=== PATIENT | female | born 1965 | race Hispanic/Latino ===

== ENCOUNTER 2021-05-03 02:22 | Emergency (ER) | payer MEDICAID ==
[~2021-05-03] VITALS: Ht 157.5 cm; Wt 113.4 kg
[2021-05-03 02:49] LABS: HEMATOCRIT 38.7 % (36-48); MEAN CORPUSCULAR HGB CONC 33.6 g/dL (32.0-36.0); MEAN CORPUSCULAR VOLUME 86.4 fL (79-99); PLATELET COUNT (AUTO) 230 K/uL (130-400); RED BLOOD CELL COUNT(AUTO) 4.48 MIL/uL (4.00-5.50); RED CELL DISTRIBUTION WIDTH 13.3 % (11.0-15.5); WHITE BLOOD COUNT (AUTO) 7.7 K/uL (4.8-10.8)
[2021-05-03 02:53] LABS: BASOPHILS % (AUTO) 0.8 % (0.0-5.0); EOSINOPHILS % (AUTO) 2.7 % (0.0-8.0); LYMPHOCYTES % (AUTO) 20.5 % (21.0-51.0); NEUTROPHILS % (AUTO) 66.3 % (40.0-77.0)
[2021-05-03 03:11] LABS: CREATININE 1.6 mg/dL (0.5-1.5); POTASSIUM 3.7 mmol/L (3.5-5.1)
[2021-05-03 03:15] LABS: ALBUMIN 2.8 g/dL (3.5-5.0); BILIRUBIN,TOTAL 0.2 mg/dL (0.2-1.0); TOTAL PROTEIN, SERUM 7.1 g/dL (6.0-8.3)
[2021-05-03] MEDS ORDERED: ACETAMINOPHEN 325 MG TAB PO ONE (04:00)
[2021-05-03] MEDS ORDERED: 0.9% NACL 250ML 250 ML IV ONE (04:00)
[2021-05-03 04:02] LABS: PROTHROMBIN TIME 10.9 SEC (9.6-11.6)
[2021-05-03 04:03] LABS: PARTIAL THROMBOPLASTIN TIME 25.2 SEC (26.3-35.5)
[2021-05-03 04:24] LABS: BILIRUBIN,URINE Negative (NEGATIVE); COLOR,URINE Yellow (YELLOW); GLUCOSE, URINE (UA) >=1000 mg/dL (NEGATIVE); KETONES,URINE Negative (NEGATIVE); LEUKOCYTE ESTERASE ,URINE Small (NEGATIVE); NITRATE,URINE Negative (NEGATIVE); OCCULT BLOOD,URINE Small (NEGATIVE); PROTEIN,URINE 300 mg/dL (NEGATIVE)
[2021-05-03 04:25] LABS: APPEARANCE,URINE CLOUDY (CLEAR)
[2021-05-03] MEDS ORDERED: ACETAMINOPHEN 325 MG TAB ONE (04:28)
[2021-05-03 04:34] LABS: BACTERIA,URINE Rare /HPF (None Seen); MUCUS,URINE Rare LPF (None Seen); SQUAMOUS EPITHELIAL CELL,UR Moderate /HPF (0-2)
[2021-05-03] MEDS ORDERED: 0.9% NACL 500ML IV.SOLN 500 ML IV ONE (06:21)
[2021-05-03 11:42] VITALS: BP 138/52
== END 2021-05-03 12:13 | disposition home or self-care (01) ==
LOC: EDH 02:22
DX: E86.9 Volume depletion, unspecified (principal); I95.9 Hypotension, unspecified; I11.0 Hypertensive heart disease with heart failure; I50.9 Heart failure, unspecified; E11.9 Type 2 diabetes mellitus without complications; Z86.718 Personal history of other venous thrombosis and embolism; Z88.6 Allergy status to analgesic agent; Z96.652 Presence of left artificial knee joint; Z98.890 Other specified postprocedural states
CPT/HCPCS: 36415; 71045; 80053; 81001; 83605 ×2; 83735; 83880; 84484; 85025; 85378; 85610; 85730; 93005; 96360; 99285; J7040